=== PATIENT | female | born 1965 | race Caucasian/White ===

== ENCOUNTER 2021-11-21 08:55 | Emergency (ER) | payer OTHER, SELFPAY ==
--- NOTE | ~2021-11-21 | XR_ITS ---
XR chest 2V DATE: 11/21/2021 09:24 INDICATION: Cough. Crackles at lung bases. TECHNIQUE: 2 views COMPARISON: None FINDINGS: Normal heart size. No hilar or mediastinal enlargement. No pulmonary infiltrate or consolid ation, pleural effusion or pulmonary vascular congestion or pneumothorax is detected Surgical clips, right upper quadrant, consistent with cholecystectomy. Mild degenerative spurring of the thoracic spine. IMPRESSION: No active cardiopulmonary disease Reviewed, dictated and finalized at location A.
--- NOTE | 2021-11-21 08:57 | ED.URI ---
HPI - URI/Sore Throat General Chief Complaint: Upper Respiratory Infection Stated Complaint: upper respiratory Time Seen by Provider: 11/21/21 08:57 Source: patient Mode of arrival: ambulatory Limitations: no limitations History of Present Illness HPI Narrative: Ms. Barreto is a 56-year-old female patient presenting to the clinic today with complaints of upper respiratory symptoms such as sinus congestion and sore throat. She reports she was seen earlier this week by her PCPs office and they gave her a Medrol Dosepak and told her she had some fluid behind her left eardrum as well as an upper respiratory infection at that time. She is 6 to 7 days and her symptoms and feels worse. She is having a productive cough but is unable to bring the phlegm up and out. She reports green/yellow nasal drainage with sinus tenderness over the right maxillary sinus. She has also had fever and she is also reporting some shortness of breath. Her PCP tested for COVID and strep at the beginning of her symptoms and they were both negative. She tested for COVID again 2 days ago and was negative. MD elicited complaint: fever, cough, sore throat, rhinorrhea, nasal congestion and sinus pain Related Data Home Medications Medication Instructions Recorded Confirmed amitriptyline 25 mg tablet 1 tablet PO DAILY 11/21/21 11/21/21 amitriptyline 25 mg tablet 50 mg PO HS 11/21/21 11/21/21 atorvastatin 20 mg tablet 1 tablet PO DAILY 11/21/21 11/21/21 cetirizine 10 mg tablet 10 mg PO DAILY 11/21/21 11/21/21 duloxetine 30 mg capsule,delayed 1 cap PO DAILY 11/21/21 11/21/21 release glipizide 5 mg tablet 5 tablet PO BID 11/21/21 11/21/21 lorazepam 0.5 mg tablet 1 tablet PO DAILY PRN Anxiety 11/21/21 11/21/21 mirtazapine 7.5 mg tablet 1 tablet PO DAILY 11/21/21 11/21/21 semaglutide 14 mg tablet (Rybelsus) 1 tablet PO DAILY 11/21/21 11/21/21 thyroid (pork) 15 mg tablet 15 mg PO DAILY 11/21/21 11/21/21 ([place] Thyroid) thyroid (pork) 90 mg tablet ([employer] 1 tablet PO DAILY 11/21/21 11/21/21 Thyroid) Allergies Allergy/AdvReac Type Severity Reaction Status Date / Time demeclocycline Allergy Mild Hives Verified 11/21/21 09:12 Penicillins Allergy Mild Hives Verified 11/21/21 09:12 sulfasalazine Allergy Mild Hives Verified 11/21/21 09:12 tetracycline Allergy Mild Hives Verified 11/21/21 09:13 citalopram Allergy Unknown Unknown Verified 11/21/21 09:13 Review of Systems Review of Systems: Pertinent positives per HPI. Patient denies any rash, headache, visual changes, dizziness, chest pain, palpitations, nausea, vomiting, diarrhea, constipation, abdominal pain, or any urinary issues. [facility] Comments At the time of my signature, I reviewed and agree with the nursing past medical, surgical, social, and family history. There is no relevant family history pertinent to the patient complaint. Exam Narrative: General: Well-developed, morbidly obese, in no apparent distress Head: Normocephalic, atraumatic Eyes: Pupils equally round and reactive to light bilaterally, EOM intact, sclera and conjunctive injected bilaterally with yellow crusty discharge, mild bilateral lid swelling Ears: TMs intact and clear, ear canals clear, no drainage, grossly hearing normal. Nose: Nares patent, clear nasal discharge, moderate inflammation, sinus tenderness over the right maxilla Mouth: Oral pharynx without lesions or masses, good dentition, MMM. Oropharynx red, postnasal drip Neck: Supple, trachea midline, no enlargement of anterior or posterior cervical nodes, no thyroid masses or goiter palpable. Cardio: Regular rate and rhythm, s1 and s2 normal, no murmur appreciated. Resp: Faint crackles heard over the posterior right lower base otherwise clear, no rhonchi, wheezing or rubs Course Course Emergency Course: Portions of this record may have been created with voice recognition software. Level of Care: Express Care Visit Vital Signs Vital signs: Vital signs reviewed MDM - URI/So
[2021-11-21 09:02] VITALS: BP 140/65; PULSE 93; RESP 16; TEMP 36.8; O2SAT 96
== END 2021-11-21 09:50 | disposition home or self-care (01) ==
LOC: EXPBETH 09:00
PROVIDERS: Emergency Provider Nurse Practitioner Family; PCP Hospitalist
DX: H10.33 Unspecified acute conjunctivitis, bilateral (principal); J01.00 Acute maxillary sinusitis, unspecified; K76.0 Fatty (change of) liver, not elsewhere classified; M79.7 Fibromyalgia; E11.9 Type 2 diabetes mellitus without complications; E03.9 Hypothyroidism, unspecified; F41.9 Anxiety disorder, unspecified
CPT/HCPCS: 71046; 99213; G0463